=== PATIENT | female | born 1960 | race Caucasian/White ===

== ENCOUNTER 2022-07-12 12:20 | Emergency (ER) | payer BC, SELFPAY ==
--- NOTE | 2022-07-12 12:22 | ED.URI ---
HPI - URI/Sore Throat General Chief Complaint: Upper Respiratory Infection Stated Complaint: Cough Chest congestion Time Seen by Provider: 07/12/22 12:23 Source: patient and RN notes reviewed History of Present Illness HPI Narrative: patient is a 52-year-old female who presents to the Urgent Care with complaints of cough and chest congestion with intermittent dyspnea for 10 days. Patient has not seen her provider regarding her symptoms and has continued to smoke daily. Patient denies any fevers, nausea, vomiting. Patient has been using Mucinex for the last day and has been taking Tylenol and ibuprofen. Denies of chest pain. No other acute complaints. No acute distress noted. Patient aware of the plan of care. Some parts of this dictation were generated by voice recognition software and may contain typographical and/or grammatical inaccuracies. Related Data Home Medications Medication Instructions Recorded Confirmed bupropion HCl 150 mg 24 hr tablet, mg PO 07/12/22 extended release fluticasone furoate 100 inhalation 07/12/22 mcg-vilanterol 25 mcg/dose inhalation powder (Breo Ellipta) lisinopril 10 mg tablet mg 07/12/22 lovastatin 20 mg tablet mg 07/12/22 Allergies Allergy/AdvReac Type Severity Reaction Status Date / Time No Known Allergies Allergy Verified 01/30/19 13:55 Review of Systems Review of Systems: CONSTITUTIONAL: Denies fever, chills, or sweats. EYES: Denies visual changes, redness, or discharge. ENT: Denies rhinorrhea, congestion, sore throat, or otalgia. CARDIOVASCULAR: Denies chest pain, palpitations, or edema. RESPIRATORY: Reports a productive cough with chest congestion dyspnea GASTROINTESTINAL: Denies abdominal pain, nausea, vomiting, or diarrhea. GENITOURINARY: Denies dysuria or hematuria. SKIN: Denies rash or itching. MUSCULOSKELETAL: Denies back pain, joint pain, or myalgia. NEUROLOGIC: Denies headache, numbness, or weakness. P All other systems reviewed are negative, except as documented in HPI. PMFSH Comments All other systems reviewed are negative, except as documented in HPI. At the time of my signature, I reviewed and agree with the nursing past medical, surgical, social, and family history. There is no relevant family history pertinent to the patient complaint. Exam Narrative: GENERAL: This is a well-nourished, well-developed patient, in no apparent distress. HEAD: normocephalic, atraumatic. EYES: PERRL. Sclera clear/white. Vision is grossly intact. EARS: External ears normal, auditory canals clear and without drainage, TMs normal without perforation. Hearing grossly intact. NOSE: External nose normal with no obvious nasal discharge, nares without redness, no rhinorrhea. THROAT: Mucous membranes moist, posterior pharynx clear. moderate postnasal drainage NECK: Neck supple CARDIOVASCULAR: Regular rate and rhythm without murmurs, gallops, or rubs. RESPIRATORY: slightly diminished throughout with expiratory wheezes bibasilar SKIN: warm, intact with no suspicious lesions or rash, good texture and turgor. NEURO: awake, alert, and oriented to person, place and time. There were no obvious focal neurologic abnormalities. EXTREMITIES: No clubbing, cyanosis, or edema. Course Course Level of Care: Express Care Visit Vital Signs Vital signs: Vital Signs Temperature 97.5 F L 07/12/22 12:26 Pulse Rate 95 07/12/22 12:26 Respiratory Rate 16 07/12/22 12:26 Blood Pressure 162/90 H 07/12/22 12:26 Pulse Oximetry 98 07/12/22 12:26 Oxygen Delivery Room Air 07/12/22 12:26 Temperature 97.5 F L 07/12/22 12:26 Pulse Rate 95 07/12/22 12:26 Respiratory Rate 16 07/12/22 12:26 Blood Pressure 162/90 H 07/12/22 12:26 Pulse Oximetry 98 07/12/22 12:26 Oxygen Delivery Room Air 07/12/22 12:26 review- Patient is informed that they may have pre-hypertension or hypertension based on a blood pressure reading in the department. I recommend the patient c
[2022-07-12 12:26] VITALS: BP 162/90; PULSE 95; RESP 16; TEMP 36.4; O2SAT 98
== END 2022-07-12 12:53 | disposition home or self-care (01) ==
PROVIDERS: Emergency Provider Nurse Practitioner Family; PCP Internal Medicine
DX: J40 Bronchitis, not specified as acute or chronic (principal); E78.00 Pure hypercholesterolemia, unspecified; I10 Essential (primary) hypertension; J45.909 Unspecified asthma, uncomplicated
CPT/HCPCS: 99203; G0463

== ENCOUNTER 2025-06-27 01:34 | Day surgery (SDC) | payer OTHER, SELFPAY ==
[2025-06-13 10:59] VITALS: BMI 27.6
[2025-06-27 07:40] VITALS: BP 150/87; PULSE 96; RESP 16; TEMP 36.3; O2SAT 98; BMI 27.1
[2025-06-27] MEDS: LACTATED RINGERS 1,000 ML 150 ML IV CONT (07:58)
--- NOTE | 2025-06-27 08:02 | P.PNAN_ITS ---
Anes - Initial Pre Proc Eval Procedure: Operation Date: 06/27/25 09:00 Proposed Procedures p Screening Colonoscopy - Ramsey Choudhury MD Date/Time: 06/27/25 08:02 Surgeon: Ramsey Choudhury MD Pre Op Diagnosis: screening, positive cologuard Patient Data Age: 65 Gender: F Height: 1.65 m Weight: 74.1 kg Last Vital Signs Temp 97.4 F L 06/27/25 07:40 Pulse 96 06/27/25 07:40 Resp 16 06/27/25 07:40 BP 150/87 H 06/27/25 07:40 Pulse Ox 98 06/27/25 07:40 O2 Del Method Room Air 06/27/25 07:40 Allergies Allergy/AdvReac Type Severity Reaction Status Date / Time No Known Allergies Allergy Verified 06/27/25 07:45 Home Medications ?Medication ?Instructions ?Recorded ?Confirmed ?Type albuterol sulfate 90 mcg/actuation 2 puff inhalation Q ID PRN 07/12/22 06/13/25 Rx aerosol inhaler shortness of breath or wheez ing #8 grams bupropion HCl 150 mg 24 hr tablet, 150 mg PO DAILY 10/2906/27/25 History extended release fluticasone furoate 100 1 inh inhalation Q24H 06/27/25 History mcg-vilanterol 25 mcg/dose inhalation powder (Breo Ellipta) lisinopril 10 mg tablet 10 mg PO DAILY 07/12/2206/10 History mometasone-formoterol HFA 200 inhalation 06/13/25 His tory mcg-5 mcg/actuation aerosol inhaler (Dulera) rosuvastatin 10 mg tablet 10 mg PO HS 06/13/25 5 History Patient hx anesthesia problems: none Family hx anesthesia problems: none Results Review: All pre-operative results and documents have been reviewed as part of the pre- operative evaluation. [facility], [facility] Social History Social History Smoking status: Former smoker Tobacco type: cigarettes Additional smoking assessment comments: quit 2 weeks ago, spot on lung Alcohol intake: never Substance use: current Substance use type: marijuana Living arrangements: with family Spiritual care concerns: No Anes - Eval Final PreProcedure Day of Procedure 06/27/25 08:02 Patient weight: overweight Lungs: normal air movement Airway: Mallampati scale class II and special considerations (Edentulous. ) Neurological: alert and oriented Last oral intake: >/= 8 hours ASA classification: II Emergent: no Anesthetic plan: proceed Anesthesia type and monitoring: general GIVS and standard monitoring Results Review: All pre-operative results and documents have been reviewed as part of the pre-operative evaluation. HTN, hyperlipidemia, quit smoking 3 weeks ago. Informed Consent: The patient's anesthetic plan and its attendant risks and benefits were discussed with the patient/family/POA. Questions were solicited and answers provided to the satisfaction of the patient/family/POA.
--- NOTE | 2025-06-27 08:20 | PM.HPGS ---
History of Present Illness History of Present Illness Consent: Risks, benefits, and alternatives have been discussed and questions answered. Patient agrees to proceed with procedure. Chief complaint: screening, positive cologuard Narrative: Neha Hillman is a 65 year old female here for first colonoscopy, had + cologuard Review of Systems Review of Systems: All systems reviewed & are unremarkable except as noted in HPI and below PMFSH Past Medical History Medical History (Updated 06/27/25 @ 08:21 by Ramsey Choudhury MD) Positive colorectal cancer screening using Cologuard test Social History Social History Smoking status: Former smoker Tobacco type: cigarettes Additional smoking assessment comments: quit 2 weeks ago, spot on lung Alcohol intake: never Substance use: current Substance use type: marijuana Living arrangements: with family Spiritual care concerns: No Meds Home Medications and Allergies Home Medications ?Medication ?Instructions ?Recorded ?Confirmed ?Type albuterol sulfate 90 mcg/actuation 2 puff inhalation QID PRN 07/12/22 06/13/25 Rx aerosol inhaler shortness of breath or wheezing #8 grams bupropion HCl 150 mg 24 hr tablet, 150 mg PO DAILY 07/12/22 06/27/25 History extended release fluticasone furoate 100 1 inh inhalation Q24H 07/12/22 06/27/25 History mcg-vilanterol 25 mcg/dose inhalation powder (Breo Ellipta) lisinopril 10 mg tablet 10 mg PO DAILY 07/12/22 06/27/25 History mometasone-formoterol HFA 200 inhalation 06/13/25 History mcg-5 mcg/actuation aerosol inhaler (Dulera) rosuvastatin 10 mg tablet 10 mg PO HS 06/13/25 06/27/25 History Allergies Allergy/AdvReac Type Severity Reaction Status Date / Time No Known Allergies Allergy Verified 06/27/25 07:45 Vital Signs Vital Signs - 24 hr 06/27/25 07:40 Temperature 97.4 F L Pulse Rate 96 Respiratory Rate 16 Blood Pressure 150/87 H Pulse Oximetry 98 Oxygen Delivery Room Air Exam Const: General: comfortable and no acute distress HENMT: Face/Nose/Sinus: Normal nares present Eyes: General: appearance normal, both eyes and all related structures Neck: Neck: no JVD Resp: Auscultation: clear to auscultation bilaterally Cardio: Rate: regular rate Rhythm: regular rhythm GI: Inspection: non-distended GI Palp: Yes Soft to palpation Skin: General skin exam: normal color Extrem: General: normal to inspection Psych: Mental Status: mental status grossly normal Assessment and Plan Assessment and plan (1) Positive colorectal cancer screening using Cologuard test: Code(s): R19.5 - Other fecal abnormalities Status: Acute Assessment and Plan: colonoscopy
--- NOTE | 2025-06-27 08:46 | S_PTH ---
PATIENT: Neha Hillman LOC: [facility]#:[id number] AGE/SX: 65/F ROOM: RE06/27/[address]: Ramsey Choudhury MD : 1960 BED: DIS: 06/27/2025 SPEC #: [id number] RECD: 06/27/25 09:12 STATUS: RAFFI CLIFFORD #: [id number] SYBIL: 06/27/25 08:[address]: Ramsey Choudhury DEPT: [facility] Surgical RECD BY: Chrystal Campa ENTERED: 06/27/25 09:12 SP TYPE: Surgical OTHR DR: Tressa Felton,[employer] Tissues: A - Colon Polypectomy Procedures: Hematoxylin and Eosin Stain Gross and Microscopic Level 4
[2025-06-27 08:51] VITALS: BP 117/63; PULSE 88; RESP 20; O2SAT 100
[2025-06-27 09:01] VITALS: BP 118/68; PULSE 84; RESP 21; O2SAT 100
[2025-06-27 09:11] VITALS: BP 141/69; PULSE 77; RESP 16; O2SAT 99
== END 2025-06-27 09:15 | disposition home or self-care (01) ==
PROVIDERS: PCP Nurse Practitioner Family; Referring Provider Nurse Practitioner Family; Visit Provider Internal Medicine Gastroenterology
PROC: 0DJD8ZZ Inspection of Lower Intestinal Tract, Via Natural or Artificial Opening Endoscopic (ICD-10-PCS; CPT 45378; principal; 2025-06-27 09:00)
DX: R19.5 Other fecal abnormalities (principal); K63.5 Polyp of colon; K64.8 Other hemorrhoids; K57.30 Diverticulosis of large intestine without perforation or abscess without bleeding; I10 Essential (primary) hypertension; E78.5 Hyperlipidemia, unspecified; F12.90 Cannabis use, unspecified, uncomplicated; Z79.51 Long term (current) use of inhaled steroids; Z87.891 Personal history of nicotine dependence
CPT/HCPCS: 45380; 88305; J2003; J2704; J7120